=== PATIENT | female | born 1980 | race Caucasian/White ===

== ENCOUNTER → 2022-05-23 10:22 | Outpatient (CLI) | payer OTHER, SELFPAY ==
--- NOTE | ~2022-05-23 | MM_ITS ---
EXAMINATION: MM screening vicki BI w pamela HISTORY: Screening mammogram TECHNIQUE: Craniocaudal and mediolateral oblique 3-D tomosynthesis images were obtained and synthetic 2-D images were generated. CAD analysis was submitted and interpreted. COMPARISON: No prior mammogram is available for comparison at this institution. BREAST PARENCHYMAL COMPOSITION: The breasts are heterogeneously dense, which may obscure small masses . FINDINGS: There is no evidence of suspicious mass, calcification, or architectural distortion to sugg est malignancy in either breast. There has been no suspicious interval change. IMPRESSION: 1. No mammographic evidence of malignancy. 2. Recommend routine screening mammography in one year. BI-RADS Category 1: Negative Reviewed, dictated and finalized at location A.
== END ==
PROVIDERS: PCP Obstetrics & Gynecology; Visit Provider Obstetrics & Gynecology
DX: Z12.31 Encounter for screening mammogram for malignant neoplasm of breast (principal)
CPT/HCPCS: 77063; 77067

== ENCOUNTER → 2023-07-23 12:20 | Outpatient (CLI) | payer OTHER, SELFPAY ==
--- NOTE | ~2023-07-23 | MM_ITS ---
EXAMINATION: MM screening vicki BI w pamela HISTORY: Screening TECHNIQUE: Craniocaudal and mediolateral oblique 3-D tomosynthesis images were obtained and synthetic 2-D images were generated. CAD analysis was submitted and interpreted. COMPARISON: 05/23/2022 BREAST PARENCHYMAL COMPOSITION: The breasts are heterogeneously dense, which may obscure small masses FINDINGS: There are developing asymmetries in the upper outer quadrant of the right breast. The left breast is stable without evidence for malignancy. IMPRESSION: 1. Developing next right breast asymmetries. 2. Additional mammographic views and possible breast ultrasound are recommended. BI-RADS Category 0: Incomplete: Needs additional imaging evaluation. Reviewed, dictated and finalized at location A. R SECOND IMPRESSION: 1. Developing next right breast asymmetries. 2. Additional mammographic views and possible breast ultrasound are recommended . BI-RADS Category 0: Incomplete: Needs additional imaging evaluation.
== END ==
PROVIDERS: PCP Obstetrics & Gynecology; Visit Provider Obstetrics & Gynecology
DX: Z12.31 Encounter for screening mammogram for malignant neoplasm of breast (principal); R92.8 Other abnormal and inconclusive findings on diagnostic imaging of breast
CPT/HCPCS: 77063; 77067

== ENCOUNTER → 2023-08-16 08:32 | Outpatient (CLI) | payer OTHER, SELFPAY ==
--- NOTE | ~2023-08-16 | MMUS_ITS ---
EXAMINATION: MM diagnostic vicki RT w pamela, US breast RT limited HISTORY: Developing right breast mammographic asymmetries, upper outer quadrant, reported on 3 screening mammogram TECHNIQUE: Additional 3-D tomosynthesis images of the right breast were performed and synthetic 2-D i mages were generated. CAD analysis was submitted and interpreted. High resolution upper outer quadran t and lower outer quadrant right breast ultrasound was performed. COMPARISON: 07/23/2023, 05/23/2022 bilateral screening mammogram examinations FINDINGS: MAMMOGRAPHIC FINDINGS: No suspicious mammographic mass or architectural distortion is detected. However, the heterogeneously dense stroma may obscure masses. No malignant calcification, skin thickening or retraction is noted. ULTRASOUND: There are scattered occasional 6 mm or smaller circumscribed hypoechoic or sonolucent lesions with pa rallel orientation, no suspicious shadowing or internal vascularity. No suspicious mass or shadowing is detected. IMPRESSION: 1. Benign findings 2. Routine annual mammographic screening is recommended BI-RADS Category 2: Benign finding(s). Reviewed, dictated and finalized at location A. 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 Benign findings 2. Routine annual mammographic screening is recommended BI-RADS Category 2: Benign finding(s).
== END ==
PROVIDERS: PCP Obstetrics & Gynecology; Visit Provider Obstetrics & Gynecology
DX: R92.333 Mammographic heterogeneous density, bilateral breasts (principal)
CPT/HCPCS: 76642; 77061; 77065; G0279

== ENCOUNTER 2024-03-13 08:50 | Outpatient (CLI) | payer OTHER, SELFPAY ==
--- NOTE | ~2024-03-13 | MR_ITS ---
EXAMINATION: MR abdomen wo/w con, MR pelvis wo/w con DATE: 03/13/2024 10:17 INDICATION: Leiomyomatous uterus TECHNIQUE: 1. Magnetic resonance imaging (MRI) of the abdomen was performed without and with 14 mL Multihance in travenous contrast. Sequences included coronal T2-weighted SS-FSE, coronal and axial FS 2D-FIESTA, a xial STIR FSE, axial T2-weighted SS-FSE, axial T2-weighted FS SS-FSE, axial diffusion-weighted SE, ax ial dual-echo T1-weighted FSPGR, and axial and coronal T1-weighted LAVA. Postcontrast axial T1-weight ed LAVA images were obtained in portal venous phase was 6 minutes and 10 minute delayed images. Postc ontrast coronal T1-weighted LAVA images were obtained. 2. MRI of the pelvis was performed without and with identical 14 mm MultiHance intravenous contrast. Full-field sequences of the pelvis included axial and coronal T2-weighted SS FSE, coronal 2D FIESTA, axial T1-weighted FSPGR, axial dual-echo T1-weighted FSPGR and axial T1 weighted LAVA. Small field o f view sequences included axial, sagittal and coronal T2-weighted FSE centered on the uterus and adne xa. Postcontrast sequences included a time course axial T1-weighted LAVA with full-field of view of the pelvis. COMPARISON: Ultrasound dated 02/26/2024 FINDINGS: Abdomen: Heart size is normal. No pericardial or pleural effusion. There are multiple T2 hyperintense hepatic cysts measuring up to 4.7 cm. There are couple T1 hypointense, T2 hyperintense lesions measuring 3.0 cm and 1.9 cm in the right hepatic lobe which demonstrate persistent hyperenhancement relative to the surrounding liver through the 10 minute delayed imaging most consistent with either hepatic hemangio ma or focal nodular hyperplasia. 8 mm T2 hyperintense nonenhancing cyst at the caudal aspect of the s pleen. Pancreas, bilateral adrenal glands and kidneys are normal. The bowels are normal with no obstr uction. No pathologically enlarged abdominal lymphadenopathy. Severe Lumbar spondylosis with fibrofat ty degenerative endplate changes at L4-L5. Pelvis: There is a 15.2 x 10.0 x 12.2 cm pedunculated fibroid arising from the posterior fundus of the anteve rted uterus. There are multiple enlarged bilateral draining parametrial vessels. There are a few tiny T2 hyperintense follicles at the bilateral ovaries which are difficult to discriminate from the surr ounding enlarged parametrial vessels. 1.6 cm Bartholin cyst at the left side of the introitus. Bladde r is normal. There is no free fluid in the pelvis. No pathologically enlarged pelvic or inguinal lymp hadenopathy. IMPRESSION: 1. 15.2 x 10.0 x 12.2 cm pedunculated fibroid arising from the uterine fundus. 2. 3.0 cm and 1.9 cm hepatic lesions demonstrating persistent avid enhancement on the 10 minute delay ed images which could represent either hemangiomas or focal nodular hyperplasia. Reviewed, dictated and finalized at location B. IMPRESSION: 1. 15.2 x 10.0 x 12.2 cm pedunculated fibroid arising from the uterine fundus. 2. 3.0 cm and 1.9 cm hepatic lesions demonstrating persistent avid enhancement on the 10 minute delayed images which could represent either hemangiomas or foc al nodular hyperplasia.
== END 2024-03-13 08:51 ==
LOC: MICIMG 08:51
PROVIDERS: PCP Obstetrics & Gynecology; Visit Provider Obstetrics & Gynecology
DX: D25.9 Leiomyoma of uterus, unspecified (principal); K76.9 Liver disease, unspecified
CPT/HCPCS: 72197; 74183; A9577

== ENCOUNTER 2024-04-02 12:14 | Outpatient (CLI) | payer OTHER, SELFPAY | END 2024-04-02 12:15 | disposition home or self-care (01) | LOC: ANHSURGERY 12:18 | PROVIDERS: PCP Physician Assistant; Visit Provider Obstetrics & Gynecology | DX: N93.9 Abnormal uterine and vaginal bleeding, unspecified (principal) | CPT/HCPCS: 36415; 86850; 86900; 86901 ==

== ENCOUNTER 2024-04-06 10:12 | Inpatient (IN) | payer OTHER, SELFPAY ==
--- NOTE | 2024-03-31 15:28 | SUR.PREOP ---
Report to the Outpatient Waiting Room, entrance under the green pavilion located off [facility], at time ___06____ on date ____04/06/24___. Planned Procedure Time: ____729____. Time changes happen often and if your time is changed the preop area will call you the afternoon before. - You and your visitor will be asked to self-screen and do not enter if you have any COVID symptoms. - A mask is optional within the hospital at this time. Patients may have clear liquids (water, carbonated beverages, clear teas, apple juice) until 3 hours prior to surgery with a maximum of 20 ounces. - NO CLEAR LIQUIDS AFTER 0430 - No food from midnight until time of surgery - Infants may have breast milk until 4 hours before surgery, infant formula 6 hours prior to surgery. - Children will be allowed to drink immediately following surgery. If applicable, please bring a bottle or sippy cup to assist with drinking. Juice, water, soda, and popsicles are readily available. For infants on formula, please bring formula the day of surgery. Pacifiers are allowed. Take the following medications with a SIP of water the morning of surgery: N/A DO NOT STOP ANY OF YOUR OTHER PRESCRIPTION MEDICATIONS PRIOR TO SURGERY ?EXCEPT THE FOLLOWING Medications to discontinue per physician N/A Date to take last dose Please no make-up, nail new zealander, hairspray, perfume, deodorant, or body powder the day of surgery. No jewelry (including any body piercings) or valuables the day of surgery, leave them at home. Please take a shower or bath the night before, or the morning of, surgery with an antibacterial soap. Wear comfortable, loose fitting clothing. Children are encouraged to wear pajamas. - Jewelry must be removed prior to entering the operating room. Rings and piercings that are not removed may be cut off. - The hospital will not accept responsibility for valuables. - Please leave all valuables, including medications, at home the day of surgery. If you are going home after surgery, a licensed van driver helper must drive you home. - NO public transportation without another adult if you receive anesthesia. - We recommend that an adult stay with you for 24 hours following discharge. - We also recommend that you do not drive, make important decision, drink alcoholic beverages, or take any drugs that were not prescribed by your health care provider for at least 24 hours after your discharge time. For Pediatric surgeries, we recommend two adults accompany the child home. Follow any additional instructions given to you from your surgeon. If you or anyone in your household have experienced Covid symptoms in the past week, please notify your surgeon or the nurse liaison at the phone number below for possible testing. Telephone instructions given to YEN MAHOENY and asked if any additional questions and then verbalized understanding. Patient advised to call surgeon office or pre surgery nurse liaison [phone] if any additional questions.
[2024-03-31 15:40] VITALS: BMI 25.0
--- NOTE | 2024-04-05 20:33 | PM.IMHP ---
H&P: HPI History of Present Illness Date/Time: 04/05/24 20:33 Chief Complaint: pelvic pain Narrative: Jennie is a 44yo G0, who presents for surgical treatment for fibroid uterus. MRI shows that she has a [id number] pedunculated fibroid arising from the posterior fundus. On exam, she was felt to have an 18wk size uterus; two years prior, was ~10wk size. She has a normal pap 01/2022. Normal EMB 02/2023. She had normal TSH/CBC 02/2024. She is on Sprintec (has been for many years) and reports her cycles are regular, not too heavy. But she is having a significant change in her pain. She is very worried that this fibroid has grown this rapidly. She is starting to have some night sweats during the week of her period, but cycles have not changed, still very light for ~5 days. She is sexually active w/o issues, does not want children. She reports most of her aunts, and mother had hysterectomies for fibroids. Review of Systems Constitutional: Constitutional: Denies chills, Denies fever(s) and Denies headache(s) Eyes: Eyes: Denies change in vision ENT: Denies dizziness and Denies headache(s) Cardiovascular: Cardiovascular: Denies chest pain and Denies dyspnea Respiratory: Respiratory: Denies cough and Denies dyspnea Gastrointestinal: Gastrointestinal: Denies abdominal pain and Denies change in stool character Genitourinary: Genitourinary: Denies abnormal menses, Reports pelvic pain, Denies vaginal discharge, Denies vaginal odor and Denies vaginal pruritus Neurologic: Denies dizziness and Denies headache(s) Psychiatric: Psychiatric: Denies anxiety and Denies depression ON LICENSE OF [facility] Past Medical History Medical History Anxiety Back pain Screening mammogram, encounter for Surgical History Surgical History History of tonsillectomy Family History Family History Grandparent Acute myocardial infarction paternal grandfather Father Afib Mother Diabetes mellitus Social History Social History Smoking packs per day: 0.75 Smoking cigarettes per day: 15.0 Years smoked: 20 Smoking pack-years: 15.00 Smoking status: Former smoker Tobacco type: cigarettes Smoking end date: 03/16/15 Alcohol intake: current Alcohol use details: weekends Substance use: former Substance use type: marijuana and heroin Last use: over 20 years ago for heroin & MARIJUANA Do You Feel Safe in your Home?: Yes Lack of Transportation: No Lack of Food: Never True Current Housing: I Have Housing Concerned About Future Housing: No Difficulty Paying Gas/Electric Bills: No Difficulty Paying for Meds: No Currently Unemployed: No Education: High School Diploma/GED Difficulty w/ Childcare or Family Care: No Living arrangements: with family Additional living arrangements comments: Occupation/Education: unemployed Gender identity (if verbalized by the patient): Female Sexual Orientation (if Verbalized by the Patient): Straight or Heterosexual Spiritual care concerns: No Meds Home Medications and Allergies Home Medications Medication Instructions Recorded Confirmed Type norgestimate 0.25 mg-ethinyl 1 tablet PO DAILY #84 tabs 02/03/24 03/31/24 Rx estradiol 35 mcg tablet (Sprintec (28)) Allergies Allergy/AdvReac Type Severity Reaction Status Date / Time No Known Allergies Allergy Verified 03/31/24 15:36 Exam Const: General: cooperative, healthy appearing, comfortable and no acute distress Orientation/consciousness: patient oriented x3 Resp: Effort & Inspection: normal respiratory effort Cardio: Rate: regular rate GI: Inspection: normal to inspection GI Palp: No abdominal tenderness and Yes Soft to palpation : Other: deferred to OR Skin: General
[2024-04-06] VITALS (12 sets, daily range): BP systolic 106–130; BP diastolic 57–72; PULSE 52–67; RESP 12–17; TEMP 36.2–36.8; O2SAT 95–100
[2024-04-06] MEDS: LACTATED RINGERS 1,000 ML 30 ML IV CONT ×2 (06:30→09:20)
[2024-04-06] MEDS: KETOROLAC 15 MG/ML VIAL (*BKC) IV PUSH (07:00)
[2024-04-06] MEDS: ACETAMINOPHEN 500 MG TABLET 1000 MG PO ×3 (07:00→18:58)
--- NOTE | 2024-04-06 07:13 | WPDHPUPDATE1 ---
History and Physical Update Update Date/Time: 04/06/24 07:13 History and Physical has been reviewed, including an updated exam of the patient. There are NO changes in the patient's condition. Risks, benefits, and alternatives have been discussed and questions answered. Patient agrees to proceed with total abdominal hysterectomy with bilateral salpingectomy and possible cystoscopy (ovarian preservation)..
--- NOTE | 2024-04-06 07:13 | WPDANESEPPF ---
Anes - Initial Pre Proc Eval Procedure: Operation Date: 04/06/24 07:30 Proposed Procedures p Total Abdominal Hysterectomy with Bilateral Salpingectomy - Lina Woodward MD Date/Time: 04/06/24 07:13 Surgeon: Lina Woodward MD Pre Op Diagnosis: Abnormal Uterine Bleeding Patient Data Age: 44 Gender: F Height: 1.65 m Weight: 68.2 kg Allergies Allergy/AdvReac Type Severity Reaction Status Date / Time No Known Allergies Allergy Verified 04/06/24 07:12 Home Medications Medication Instructions Recorded Confirmed Type norgestimate 0.25 mg-ethinyl 1 tablet PO DAILY #84 tabs 02/03/24 04/06/24 Rx estradiol 35 mcg tablet (Sprintec (28)) Patient hx anesthesia problems: none Family hx anesthesia problems: none Results Review: All pre-operative results and documents have been reviewed as part of the pre-operative evaluation. [facility] Past Medical History Medical History Anxiety Back pain Screening mammogram, encounter for Surgical History Surgical History History of tonsillectomy Family History Family History Grandparent Acute myocardial infarction paternal grandfather Father Afib Mother Diabetes mellitus Social History Social History Smoking packs per day: 0.75 Smoking cigarettes per day: 15.0 Years smoked: 20 Smoking pack-years: 15.00 Smoking status: Former smoker Tobacco type: cigarettes Smoking end date: 03/16/15 Alcohol intake: current Alcohol use details: weekends Substance use: former Substance use type: marijuana and heroin Last use: over 20 years ago for heroin & MARIJUANA Do You Feel Safe in your Home?: Yes Lack of Transportation: No Lack of Food: Never True Current Housing: I Have Housing Concerned About Future Housing: No Difficulty Paying Gas/Electric Bills: No Difficulty Paying for Meds: No Currently Unemployed: No Education: High School Diploma/GED Difficulty w/ Childcare or Family Care: No Living arrangements: with family Additional living arrangements comments: Occupation/Education: unemployed Gender identity (if verbalized by the patient): Female Sexual Orientation (if Verbalized by the Patient): Straight or Heterosexual Spiritual care concerns: No Anes - Eval Final PreProcedure Day of Procedure 04/06/24 07:13 Patient weight: normal Heart: regular rate and rhythm Lungs: clear to auscultation Airway: Mallampati scale class II Neurological: alert and oriented Last oral intake: >/= 8 hours ASA classification: II Emergent: no Anesthetic plan: proceed Anesthesia type and monitoring: general ETT and standard monitoring Results Review: All pre-operative results and documents have been reviewed as part of the pre-operative evaluation. Informed Consent: The patient's anesthetic plan and its attendant risks and benefits were discussed with the patient/family/POA. Questions were solicited and answers provided to the satisfaction of the patient/family/POA.
[2024-04-06] MEDS: ceFAZolin 2 GM/D5W 50 ML 2 GM/50 ML BAG IVPB (07:29)
[2024-04-06] MEDS: metroNIDAZOLE 500 MG/ISO 100ML 500 MG/100 ML BAG 100 MG IVPB (07:43)
--- NOTE | 2024-04-06 09:18 | W.PM.PROC2 ---
Procedure Note - Detailed Date of Procedure 04/06/24 Pre-op Diagnosis Abnormal Uterine Bleeding Fibroid Uterus Pelvic Pain Post-op Diagnosis Same Procedure Performed Total abdominal hysterectomy, bilateral salpingectomy, and left oophorectomy Surgeon Lina Woodward MD News Editor Taylor Sosa Anesthesia General Findings Uterus and fibroid measuring ~18wks; large pedunculated fibroid [id number], normal bilateral fallopian tubes, normal right ovary. Left ovary with 1x1cm hard mass; decision made to remove that ovary. Good hemostasis at end of case. Uterus/fibroid/tubes/left ovary weighed 1,031g. Description of Procedure Jennie was counseled on all risks and benefits in detail. She was taken to the operating room where was placed under general endotracheal anesthesia without issue. She was then prepped and draped in the normal sterile fashion in the dorsal lithotomy position. She received 2g Ancef and Metronidazole 500mg a time out was performed. A Pfannenstiel incision was made in the skin and carried down to the underlying fascia. The fascia was nicked on either side of the midline and the fascial incision was extended laterally and superiorly using curved Saleh scissors. The fascia was then elevated using Farhana clamps and the underlying rectus muscles were dissected off the fascia, superiorly and inferiorly. The rectus muscles were then in the midline and the peritoneum was entered bluntly. Once adequate exposure was obtained, the uterus and fibroid were easily exteriorized and multiple wet laps were placed within the abdomen, packing the bowel. My hysterectomy was started on the right side. The fallopian tube was removed and the uterine ovarian artery was then serially clamped, coagulated, and transected using the LigaSure device with good hemostasis. The broad ligament and round ligament was clamped, coagulated, and transected using the LigaSure device. The left ovary was examined and found to have a hard mass measuring at least 1x1cm; slight cauliflower appearance and decision was made to proceed with left oophorectomy. The left IP ligament was was clamped, coagulated, and transected using the LigaSure device. The left round ligament was clamped, coagulated, and transected using the LigaSure device. The broad ligament was further dissected using a right angle clamp and bovie cautery. The uterine arteries were then skeletonized. The bladder flap was started on the right and carried around anteriorly to the left side. The uterine arteries and cardinal ligaments were clamped, coagulated, and transected using the LigaSure device with good hemostasis, bilaterally. The bladder flap was well out of the surgical field. The cardinal ligaments were taken down until the vagina was met. Sharply curved Z clamps were placed across, and the cervix was cut free from the vagina. The bilateral angles were suture ligated using 0-Vicryl. 3 additional figure of eight 0-Vicryl sutures were placed to approximate the cuff and good hemostasis was noted. The pelvis was irrigated with warm saline and suctioned free. Good hemostasis was noted. All instruments and laps were removed from the abdomen. The peritoneum, muscle and fascia were examined and made hemostatic with Bovie cautery. The fascia was then approximated in a running fashion using 0-Vicryl. The subcutaneous tissue was irrigated and made hemostatic with Bovie cautery. The subcutaneous tissue was reapproximated in a running fashion using 2-0 Vicryl. The skin was reapproximated in a subcuticular fashion using 4-0 Monocryl. Her incision and abdomen were cleaned, and a Mepilex dressing was placed over her incision. Sponge, lap, instrument, and needle counts were correct at the end of the case x2. She was awoken from general anesthesia and taken to recovery in a stable condition. Estimated Blood Loss 50 IV Fluids 1,400 Urine Output 100 Drains No Packing No Pathology Yes (Uterus/fibroid, bilateral tubes, and left ova
[2024-04-06] MEDS: DEXTROSE 5%/LACTATED RINGERS 1,000 ML 125 ML IV CONT ×2 (10:50→18:55)
[2024-04-06] MEDS: KETOROLAC 30 MG/ML VIAL (*BKC) IV PUSH ×2 (13:04→18:58)
[2024-04-06] MEDS: SIMETHICONE 80 MG TAB.CHEW PO ×2 (13:05→17:02)
--- NOTE | 2024-04-06 13:13 | PC.NURSE ---
Took pain meds into patient, pt seems a bit agitated. She states she is hurting but doesn't want stronger pain meds at this time. Will reassess pain in about an hour and if pain is no better then will give stronger medication. Pt agrees with plan of care.
[2024-04-06] MEDS: DOCUSATE SODIUM 100 MG CAPSULE PO (17:02)
[2024-04-06] MEDS: LIDOCAINE 5% PATCH 1 PATCH TRANSDERM (17:02)
[2024-04-07] MEDS: ACETAMINOPHEN 500 MG TABLET 1000 MG PO ×4 (01:38→23:28)
[2024-04-07] MEDS: KETOROLAC 30 MG/ML VIAL (*BKC) IV PUSH (01:39)
[2024-04-07 05:00] VITALS: BP 122/66; PULSE 54; RESP 16; TEMP 37.4; O2SAT 99
[2024-04-07 05:39] LABS: Basophils Percent Auto 0.2 % (0.2-1.2); Eosinophils Percent Auto 0.2 % (0-4.4); Hematocrit 35.1 % (37.0-47.0); Hemoglobin 11.1 g/dL (12.0-15.0); Immature Granulocyte Absolute 0.03 K/mm3 (0.00-0.031); Immature Granulocyte Percent A 0.3 % (0-0.5); Lymphocytes Absolute Auto 1.73 K/mm3 (0.9-3.2); Lymphocytes Percent Auto 15.9 % (18.3-44.2); Mean Corpuscular HGB Conc 31.6 g/dl (32-36); Mean Corpuscular Hemoglobin 30.2 pg (26-34); Mean Corpuscular Volume 95.4 fl (80-100); Monocytes Absolute Auto 0.7 K/mm3 (0.1-0.6); Monocytes Percent Auto 6.8 % (2.6-8.5); Neutrophils Absolute Auto 8.4 K/mm3 (1.3-6.7); Neutrophils Percent Auto 76.6 % (45.5-73.1); Platelet Count Result 202 k/mm3 (150-375); Red Blood Count 3.68 M/mm3 (4.2-5.4); Red Cell Distribution Width 14.1 % (11.5-14.5); White Blood Count 10.9 K/mm3 (4.5-10.0)
[2024-04-07 05:51] LABS: Carbon Dioxide 26 mmol/L (22-30); Chloride 104 mmol/L (98-107); Potassium 4.1 mmol/L (3.4-5.0); Sodium 135 mmol/L (137-145)
[2024-04-07 05:52] LABS: Anion Gap 5 mmol/L (4-12); Blood Urea Nitrogen 8 mg/dL (7-17); Calcium 8.3 mg/dL (8.4-10.2); Estimated CRCL calculation 79 ml/min; Estimated Glomerular Filt Rate > 60; Glucose 100 mg/dL (65-110)
--- NOTE | 2024-04-07 07:30 | PM.GYNPNOP ---
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 Assessment and plan (1) S/P abdominal hysterectomy and left salpingo-oophorectomy: Code(s): Z90.710 - Acquired absence of both cervix and uterus; Z90.721 - Acquired absence of ovaries, unilateral; Z90.79 - Acquired absence of other genital organ(s) Status: Acute Plan - Labs/vitals normal - PO pain meds encouraged - Regular diet, stop IV fluids - Awaiting spontaneous void; if no void after 6 hours will check bladder scan - Ambulation and PO hydration encouraged Postoperative Procedures: Procedures Operation Date: 04/06/24 07:30 Actual Procedure Side Surgeon p Total Abdominal Hysterectomy with Bilateral Salpingectomy and Left Oophorectomy Bilateral Lina Woodward MD Postoperative day: 1 Postoperative status: doing well Postoperative plan: routine post-op care Time Spent With Patient Time: Total time spent is greater than 50% in coordination of care (as documented) at patient's floor/unit and/or counseling patient: Time with patient: less than 15 minutes INCIDENT COMMANDER- PN:Subj Post-Op Subjective Date/time seen: 04/07/24 07:24 Interval history: POD#1 Jennie reports doing pretty good today. No issues overnight. Her pain is present but very tolerable, trying not to take narcotics. She has tolerated regular diet. She denies any vaginal bleeding. She has not voided yet as her arrington just came out this morning at 0500. She has passed flatus. She has ambulated and sat in the chair; denies any symptoms of anemia. Review of Systems Review of Systems: All systems reviewed & are unremarkable except as noted in HPI and below (HPI) Constitutional: Constitutional: Denies chills, Denies fever(s) and Denies headache(s) Eyes: Eyes: Denies change in vision ENT: Denies dizziness and Denies headache(s) Cardiovascular: Cardiovascular: Denies chest pain and Denies rapid heart rate Respiratory: Respiratory: Denies cough Genitourinary: Genitourinary: Denies abnormal vaginal bleeding Neurologic: Denies dizziness and Denies headache(s) Exam Const: General: cooperative, healthy appearing, comfortable and no acute distress Orientation/consciousness: patient oriented x3 Resp: Effort & Inspection: normal respiratory effort Auscultation: clear to auscultation bilaterally Cardio: Rate: regular rate GI: Inspection: normal to inspection and incision (with clean dressing) GI Palp: Yes abdominal tenderness (appropriate) and Yes Soft to palpation Auscultation: normal bowel sounds : Other: normal bleeding on pad Skin: General skin exam: normal color Neuro: General: patient oriented x3 Psych: Appearance: grossly normal Affect: normal affect Attitude: cooperative INCIDENT COMMANDER - PN: Obj Data Vital Signs Vital Signs: Vital Signs - 24 hr 04/06/24 09:20 04/06/24 09:30 04/06/24 09:45 Temperature 97.3 F L Pulse Rate 67 63 62 Respiratory Rate 17 12 12 Blood Pressure 115/64 117/68 116/66 Pulse Oximetry 100 96 99 Oxygen Delivery Simple Face Mask Room Air Room Air Oxygen Flow Rate 10 04/06/24 10:00 04/06/24 10:11 04/06/24 10:25 Temperature Pulse Rate 60 63 Respiratory Rate 12 12 Blood Pressure 106/61 107/65 Pulse Oximetry 95 99 100 Oxygen Delivery Nasal Cannula Nasal Cannula Nasal Cannula Oxygen Flow Rate 2 2 2 04/06/24 10:25 04/06/24 13:00 04/06/24 17:00 Temperature 97.8 F 98.1 F Pulse Rate 52 L 52 L Respiratory Rate 16 16 Blood Pressure 113/64 119/66 Pulse Oximetry 100 100 97 Oxygen Delivery Room Air Oxygen Flow Rate 04/06/24 17:00 04/06/24 19:05 04/06/24 21:01 Temperature 98.2 F Pulse Rate 58 L Respiratory Rate 16 Blood Pressure 114/72 Pulse Oximetry 95 97 Oxygen Delivery Room Air Oxygen Flow Rate 04/06/24 23:15 04/07/24 05:00 Temperature 98.3 F 99.3 F Pulse Rate 56 L 54 L Respiratory Rate 16 16 Blood Pressure 108/57 L 122/66 Pulse Oximetry 97 99 Oxygen Delivery Oxygen Flow Rate Intake/Output Intake/Output: Intake & Output
[2024-04-07] MEDS: DOCUSATE SODIUM 100 MG CAPSULE PO ×2 (07:37→17:23)
[2024-04-07] MEDS: SIMETHICONE 80 MG TAB.CHEW PO ×3 (07:37→17:24)
[2024-04-07] MEDS: IBUPROFEN 600 MG TABLET PO ×3 (07:39→23:28)
[2024-04-07 08:00] VITALS: BP 121/84; PULSE 67; RESP 18; TEMP 36.9; O2SAT 99
[2024-04-07] MEDS: LIDOCAINE 5% PATCH 1 PATCH TRANSDERM (17:24)
[2024-04-07 20:47] VITALS: BP 116/72; PULSE 50; RESP 16; TEMP 36.8; O2SAT 99
[2024-04-08] MEDS: ACETAMINOPHEN 500 MG TABLET 1000 MG PO (06:24)
[2024-04-08] MEDS: IBUPROFEN 600 MG TABLET PO (06:24)
--- NOTE | 2024-04-08 06:41 | PM.DS ---
DS: Admitting Diagnosis Discharge Date 04/08/24 Admitting Diagnosis Fibroid uterus Pelvic pain AUB-L DS: Discharge Diagnosis Discharge Diagnosis (1) S/P abdominal hysterectomy and left salpingo-oophorectomy: Code(s): Z90.710 - Acquired absence of both cervix and uterus; Z90.721 - Acquired absence of ovaries, unilateral; Z90.79 - Acquired absence of other genital organ(s) Status: Acute DS: Summary Hospital Course Hospital Course: Jennie is a 44yo G0, who was admitted post-operatively after abdominal hysterectomy with bilateral salpingectomy and left oophorectomy. Her post-op course was uncomplicated. On day of discharge, she was ambulating, voiding, passing gas, tolerating regular diet, and her pain was controlled. Her labs, vitals, and physical exam were normal. She was discharged home in a stable condition on POD#2. Status at Discharge Functional status at discharge: independent ambulation Overall status at discharge: patient is progressing back to baseline Time Spent with Patient Time attestation: Total time spent providing and/or coordinating discharge services: Time spent: Less than 30 minutes Exam Const: General: cooperative, healthy appearing, comfortable and no acute distress Orientation/consciousness: patient oriented x3 Resp: Effort & Inspection: normal respiratory effort Auscultation: clear to auscultation bilaterally Cardio: Rate: regular rate GI: Inspection: normal to inspection, non-distended and incision (covered with clean dressing) GI Palp: Yes abdominal tenderness (appropriate) and Yes Soft to palpation Auscultation: normal bowel sounds : Other: normal bleeding on pad Skin: General skin exam: normal color Neuro: General: patient oriented x3 Psych: Appearance: grossly normal Affect: normal affect Attitude: cooperative DS: Data Data Completed and Pending Completed studies during hospitalization: Pending at discharge 04/06/24 09:02 Surgical [PTH] Routine Labs on day of discharge: Labs from last 24 hours 04/07/24 05:01 WBC 10.9 H RBC 3.68 L Hgb 11.1 L Hct 35.1 L MCV 95.4 MCH 30.2 MCHC 31.6 L RDW 14.1 Plt Count 202 MPV 12.0 H Immature Gran % (Auto) 0.3 Neut % (Auto) 76.6 H Lymph % (Auto) 15.9 L [place] % (Auto) 6.8 Eos % (Auto) 0.2 Baso % (Auto) 0.2 Lymph # (Auto) 1.73 [place] # (Auto) 0.7 H Eos # (Auto) 0.0 Baso # (Auto) 0.0 Abs Immat Gran (auto) 0.03 Absolute Neuts (auto) 8.4 H Absolute Nucleated RBC 0.000 Nucleated RBC % 0.0 Sodium 135 L Potassium 4.1 Chloride 104 Carbon Dioxide 26 Anion Gap 5 BUN 8 Creatinine 0.70 Estim Creat Clear Calc 79 Estimated GFR > 60 Glucose 100 Calcium 8.3 L Discharge Plan Discharge Attending physician on discharge: Lina Woodward Discharging Clinician: Lina Woodward Anticipated Discharge Date/Time: 04/08/24 11:00 Patient Disposition: Home, Self-Care Activity: may shower and pelvic rest Diet: regular Discharge Instructions: Pelvic rest (nothing in the vagina) and no lifting over 15 pounds for 6 weeks. Remove dressing on Friday, April 12, 2024. Call the office if you have: fevers, bright red vaginal bleeding, foul smelling vaginal discharge, nausea/vomiting/inability to pass gas/stool after 3 days. Patient Instructions: Hysterectomy (DC) Stand Alone Forms: General Discharge Information Follow-up/Referrals: Lina Woodward MD [Physician] - 2 Weeks Discharge Medications: New acetaminophen 500 mg Tablet 1,000 mg PO Q6H Qty: 60 1RF lidocaine [Lidoderm] 5 % Adhesive Patch,Medicated 1 patch transdermal DAILY Qty: 15 0RF docusate sodium 100 mg Capsule 100 mg PO BID Qty: 90 1RF ibuprofen 600 mg Tablet 600 mg PO Q6H Qty: 40 1RF oxycodone 5 mg Tablet See Rx Instructions .ROUTE .COMPLEX PRN (Reason: severe pain) Qty: 10 0RF Rx Instructions: take 0.5 - 1 tablet every 4-6 hours as needed for severe pain
--- NOTE | 2024-04-08 06:41 | PM.GYNPNOP ---
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 plan (1) S/P abdominal hysterectomy and left salpingo-oophorectomy: Code(s): Z90.710 - Acquired absence of both cervix and uterus; Z90.721 - Acquired absence of ovaries, unilateral; Z90.79 - Acquired absence of other genital organ(s) Status: Acute Postoperative Procedures: Procedures Operation Date: 04/06/24 07:30 Actual Procedure Side Surgeon p Total Abdominal Hysterectomy with Bilateral Salpingectomy and Left Oophorectomy Bilateral Lina Woodward MD Postoperative day: 1 Postoperative status: doing well Postoperative plan: routine post-op care and discharge (today) Time Spent With Patient Time: Total time spent is greater than 50% in coordination of care (as documented) at patient's floor/unit and/or counseling patient: Time with patient: less than 15 minutes CHESTNUT TANNER- PN:Subj Post-Op Subjective Date/time seen: 04/08/24 07:15 Interval history: POD#1 Jennie reports doing pretty good today. No issues overnight. Her pain is present but very tolerable, trying not to take narcotics. She has tolerated regular diet. She denies any vaginal bleeding. She has voided without issue. She has passed flatus. She has ambulated and sat in the chair; denies any symptoms of anemia. She would like to go home today. Review of Systems Review of Systems: All systems reviewed & are unremarkable except as noted in HPI and below (HPI) Constitutional: Constitutional: Denies chills, Denies fever(s) and Denies headache(s) Eyes: Eyes: Denies change in vision ENT: Denies dizziness and Denies headache(s) Cardiovascular: Cardiovascular: Denies chest pain and Denies rapid heart rate Respiratory: Respiratory: Denies cough Genitourinary: Genitourinary: Denies abnormal vaginal bleeding Neurologic: Denies dizziness and Denies headache(s) Exam Const: General: cooperative, healthy appearing, comfortable and no acute distress Orientation/consciousness: patient oriented x3 Resp: Effort & Inspection: normal respiratory effort Auscultation: clear to auscultation bilaterally Cardio: Rate: regular rate GI: Inspection: normal to inspection and incision ( C incisions c/d/i) GI Palp: Yes abdominal tenderness (appropriate) and Yes Soft to palpation Auscultation: normal bowel sounds : Other: normal bleeding on pad Skin: General skin exam: normal color Neuro: General: patient oriented x3 Psych: Appearance: grossly normal Affect: normal affect Attitude: cooperative CHESTNUT TANNER - PN: Obj Data Vital Signs Vital Signs: Vital Signs - 24 hr 04/06/24 17:00 04/06/24 17:00 04/06/24 19:05 Temperature 98.1 F 98.2 F Pulse Rate 52 L 58 L Respiratory Rate 16 16 Blood Pressure 119/66 114/72 Pulse Oximetry 97 95 Oxygen Delivery Room Air 04/06/24 21:01 04/06/24 23:15 04/07/24 05:00 Temperature 98.3 F 99.3 F Pulse Rate 56 L 54 L Respiratory Rate 16 16 Blood Pressure 108/57 L 122/66 Pulse Oximetry 97 97 99 Oxygen Delivery 04/07/24 08:00 Temperature 98.5 F Pulse Rate 67 Respiratory Rate 18 Blood Pressure 121/84 Pulse Oximetry 99 Oxygen Delivery Intake/Output Intake/Output: Intake & Output 04/04/24 04/05/24 04/06/24 04/07/24 23:59 23:59 23:59 23:59 Intake Total 4575 1200 Output Total 1500 1150 Balance 3075 50 Meds/Results Medications: Active Medications Generic Name Dose Route Start Last Admin Trade Name Freq PRN Reason Stop Dose Admin Acetaminophen 1,000 mg 04/06/24 10:12 04/07/24 13:31 Acetaminophen 500 Mg Tablet PO 1,000 mg Q6H JULISSA Administration Diphenhydramine HCl 25 mg 04/06/24 10:12 Diphenhydramine Hcl Inj 50 Mg/Ml Vial IV PUSH Q6H PRN Itching Docusate Sodium 100 mg 04/06/24 17:00 04/07/24 07:37 Docusate Sodium 100 Mg Capsule PO 100 mg BID JULISSA Administration Hydromorphone HCl 0.5 mg 04/06/24 10:12 Hydromorphone Hcl Inj (*Crx) 1 Mg/Ml Syr IV PUSH Q2H PRN Breakthrough Pain Dextros
[2024-04-08 08:10] VITALS: BP 128/75; PULSE 52; RESP 18; TEMP 36.6; O2SAT 99
[2024-04-08] MEDS: DOCUSATE SODIUM 100 MG CAPSULE PO (08:46)
[2024-04-08] MEDS: SIMETHICONE 80 MG TAB.CHEW PO (08:46)
--- NOTE | 2024-04-08 13:54 | WPDANESPN ---
Anes - Prog Note Post-Op Date/Time: 04/08/24 13:54 Cardiovascular status: normal Respiratory status: normal Airway patency: baseline Mental status: baseline Post-Op hydration status: normal Vital Signs: Last Vital Signs Temp 36.6 C 04/08/24 08:10 Pulse 52 L 04/08/24 08:10 Resp 18 04/08/24 08:10 BP 128/75 04/08/24 08:10 Pulse Ox 99 04/08/24 08:10 O2 Del Method Room Air 04/08/24 06:50 O2 Flow Rate 2 04/06/24 10:25 Pain Score (VAS): 0 I/O: Intake & Output 04/07/24 04/08/24 04/08/24 23:59 07:59 15:59 Intake Total 0 Balance 0 Laboratory Tests 04/07/24 05:01 04/07/24 05:01 Post-procedural complaints: none Patient Feedback: Patient satisfied with anesthetic care.
== END 2024-04-08 11:43 | disposition home or self-care (01) | DRG 743 ==
LOC: ANHOB2 15:57
PROVIDERS: Admitting Provider Obstetrics & Gynecology; PCP Physician Assistant; Visit Provider Obstetrics & Gynecology
PROC: 0UT94ZZ Resection of Uterus, Percutaneous Endoscopic Approach (ICD-10-PCS; principal; 2024-04-06 07:30)
DX: D25.9 Leiomyoma of uterus, unspecified (principal); R10.2 Pelvic and perineal pain; Z87.891 Personal history of nicotine dependence
CPT/HCPCS: 36415; 80048; 85025; 88307; A9270; J0690; J1100; J1170; J1836; J1885; J2250; J2405; J2704; J3010; J7120; J7121

== ENCOUNTER 2024-04-15 12:41 | Outpatient (CLI) | payer OTHER, SELFPAY ==
--- NOTE | ~2024-04-15 | CT_ITS ---
EXAMINATION: CT abdomen pelvis w con DATE: 04/15/2024 13:04 INDICATION: Infection following a procedure, unspecified. TECHNIQUE: Computed tomography (CT) of the abdomen and pelvis was performed with 100 mL Omnipaque 350 intravenous contrast. Automated exposure control and iterative reconstruction technique were employe d. The dose-length product was 327.70 mGy-cm. COMPARISON: Abdomen MRI 03/13/2024 FINDINGS: The visualized portions of lung bases demonstrate mild atelectasis. No pleural effusion. Th e heart size is normal. No pericardial effusion. There are cysts in the liver measuring up to 4.7 cm. There is an 18 mm enhancing mass in right hepatic lobe that was hyperenhancing on the prior MRI, lik dariana a hemangioma or focal nodular hyperplasia. The gallbladder, spleen, pancreas, adrenal glands, and left kidney are normal. There is right-sided urothelial thickening, consistent with pyelitis. There are no dilated loops of bowel. The appendix is not visualized. There are no pathologically enlarged l ymph nodes. There is trace fluid in the pelvis. There is severe lumbar spondylosis. IMPRESSION: 1. Right-sided pyelitis. Reviewed, dictated and finalized at location A. IMPRESSION: 1. Right-sided pyelitis.
[2024-04-15 13:29] LABS: Hemoglobin 13.3 g/dL (12.0-15.0); Mean Corpuscular HGB Conc 32.4 g/dl (32-36); Mean Corpuscular Hemoglobin 30.3 pg (26-34); Mean Corpuscular Volume 93.4 fl (80-100); Mean Platelet Volume 10.5 fl (7.4-10.4); Platelet Count Result 289 k/mm3 (150-375); Red Blood Count 4.39 M/mm3 (4.2-5.4); Red Cell Distribution Width 13.2 % (11.5-14.5); White Blood Count 10.7 K/mm3 (4.5-10.0)
[2024-04-15 13:44] LABS: Add Urine Microscopic? YES; Appearance Urine Clear (Clear); Bacteria Urine 4+ /hpf; Bilirubin Urine Negative (Negative); Blood Urine 1+ (Negative); Color Urine Yellow (Yellow); Glucose Urine UA Negative (Negative); Ketones Urine Negative (Negative); Leukocyte Esterase Ur 1+ LEU/UL (Negative); Need Manual Microscopic Reviewed; Nitrate Urine Positive (Negative); Non Pathogenic Casts 0-2; Protein Urine Negative (Negative); RBC Urine 0-2 /hpf (0-2); Specific Grav Ur > 1.045 (1.001-1.035); Squamous Epithelial Cell Urine Occasional /hpf (Few); Urobilinogen Urine 0.2 mg/dL (<2.0); WBC Urine 51-100 /hpf (0-3); pH Urine 6.5 (5.0-9.0)
[2024-04-15 13:52] LABS: Alanine Aminotransferase 21 U/L (6-35); Albumin Level 4.3 g/dL (3.5-5.1); Alkaline Phosphatase 55 U/L (38-126); Anion Gap 12 mmol/L (4-12); Aspartate Amino Transferase 23 U/L (14-36); Bilirubin,Total 0.6 mg/dL (0.2-1.3); Blood Urea Nitrogen 20 mg/dL (7-17); Calcium 8.9 mg/dL (8.4-10.2); Carbon Dioxide 28 mmol/L (22-30); Chloride 91 mmol/L (98-107); Estimated Glomerular Filt Rate > 60; Glucose 90 mg/dL (65-110); Potassium 3.9 mmol/L (3.4-5.0); Sodium 131 mmol/L (137-145)
== END 2024-04-15 12:42 | disposition home or self-care (01) ==
PROVIDERS: PCP Physician Assistant; Visit Provider Obstetrics & Gynecology
DX: T81.40XA Infection following a procedure, unspecified, initial encounter (principal); N28.84 Pyelitis cystica; Z90.710 Acquired absence of both cervix and uterus; Y83.8 Other surgical procedures as the cause of abnormal reaction of the patient, or of later complication, without mention of misadventure at the time of the procedure
CPT/HCPCS: 36415; 74177; 80053; 81001; 85027; 87077; 87086; 87088; 87186; Q9967

== ENCOUNTER 2024-07-27 12:58 | Outpatient (CLI) | payer OTHER, SELFPAY ==
--- NOTE | ~2024-07-27 | MM_ITS ---
EXAMINATION: MM screening [facility] w pamela HISTORY: Screening mammogram TECHNIQUE: Craniocaudal and mediolateral oblique 3-D tomosynthesis images were obtained and synthetic 2-D images were generated. CAD analysis was submitted and interpreted. COMPARISON: 07/23/2023, 05/23/2022 BREAST PARENCHYMAL COMPOSITION:Dense: The breasts are heterogeneously dense, which may obscure small masses. FINDINGS: No suspicious mass, calcification, or architectural distortion are identified in either jazmyn ast to suggest malignancy. There has been no suspicious interval change. IMPRESSION: No mammographic evidence of malignancy. Recommend routine screening mammography in one year. BI-RADS Category 1: Negative Reviewed, dictated and finalized at location . 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
== END 2024-07-27 12:59 | disposition home or self-care (01) ==
LOC: MICIMG 12:58
PROVIDERS: PCP Obstetrics & Gynecology; Visit Provider Obstetrics & Gynecology
DX: Z12.31 Encounter for screening mammogram for malignant neoplasm of breast (principal)
CPT/HCPCS: 77063; 77067

== ENCOUNTER 2025-07-29 11:52 | Outpatient (CLI) | payer OTHER, SELFPAY ==
--- NOTE | ~2025-07-29 | MM_ITS ---
EXAMINATION: MM screening [facility] BI w pamela HISTORY: Screening TECHNIQUE: Craniocaudal and mediolateral oblique 3-D tomosynthesis images were obtained and synthetic 2-D images were generated. CAD analysis was submitted and interpreted. COMPARISON: Comparison to multiple prior studies sequentially, with oldest reviewed study dated 05/23/2022. BREAST PARENCHYMAL COMPOSITION: Dense: The breasts are heterogeneously dense, which may obscure small masses FINDINGS: There is a developing mass in the outer aspect of the right breast at approximately 9:00, middle third. There is a developing low density mass in the lower inner quadrant of the left breast, middle third. There are no suspicious calcifications or architectural distortion. IMPRESSION: 1. Developing bilateral breast masses. 2. Additional mammographic views and possible breast ultrasound are recommended. BI-RADS Category 0: Incomplete: Needs additional imaging evaluation. Reviewed, dictated and finalized at location B. RVISOR TYPE BAR AND SEGMENT IMPRESSION: 1. Developing bilateral breast masses. 2. Additional mammographic views and possible breast ultrasound are recommended . BI-RADS Category 0: Incomplete: Needs additional imaging evaluation.
== END 2025-07-29 11:53 | disposition home or self-care (01) ==
LOC: MICIMG 11:52
PROVIDERS: Visit Provider Obstetrics & Gynecology
DX: Z12.31 Encounter for screening mammogram for malignant neoplasm of breast (principal); R92.8 Other abnormal and inconclusive findings on diagnostic imaging of breast
CPT/HCPCS: 77063; 77067